=== PATIENT | female | born 1970 | race Two or more races ===

== ENCOUNTER → 2025-01-20 | Outpatient (CLI) | payer MEDICAID, SELFPAY ==
--- NOTE | 2025-01-20 | XR_ITS ---
Examination: Knee, left , 3 views Technique: Knee AP, lateral, oblique 3 views Date and time of exam: January 20, 2025 1301 hours INDICATIONS: Left knee pain beginning 3 years ago FINDINGS: Mild narrowing medial joint space No fracture or dislocation No foreign body IMPRESSION: Mild narrowing medial joint space
== END | disposition home or self-care (01) ==
PROVIDERS: PCP Nurse Practitioner Primary Care; Referring Provider Chiropractor; Visit Provider Chiropractor
DX: M25.862 Other specified joint disorders, left knee (principal)
CPT/HCPCS: 73562

== ENCOUNTER → 2025-06-15 | Outpatient (CLI) | payer MEDICAID, SELFPAY ==
--- NOTE | 2025-06-15 10:47 | XR_ITS ---
EXAMINATION: Thoracic spine 3 views TECHNIQUE: AP lateral, lateral upper dorsal spine 3 views Date and time: June 15, 2025, 1056 hours INDICATION: Back pain years. FINDINGS: Moderate osteopenia Lower thoracic levoscoliosis 11 degrees No thoracic fracture Mild to moderate diffuse thoracic disc narrowing IMPRESSION: Mild to moderate diffuse thoracic degenerative disc disease
--- NOTE | 2025-06-15 10:47 | XR_ITS ---
EXAMINATION: Cervical spine 3 views TECHNIQUE: AP lateral coned AP odontoid cervical spine 3 views Date and time: June 15, 2025, 1103 hours INDICATIONS: Neck pain years. FINDINGS: Straightening normal cervical doses. No cervical fracture. Intact odontoid. Advanced degenerative disc disease C6-C7 Mild disc narrowing C4-C5 IMPRESSION: Advanced degenerative disc disease C6-C7
== END | disposition home or self-care (01) ==
LOC: CDIM 10:24
PROVIDERS: PCP Nurse Practitioner; Referring Provider Nurse Practitioner; Visit Provider Nurse Practitioner
DX: M50.323 Other cervical disc degeneration at C6-C7 level (principal); M51.34 Other intervertebral disc degeneration, thoracic region
CPT/HCPCS: 72040; 72070